=== PATIENT | male | born 1955 | race Caucasian/White ===

== ENCOUNTER 2018-04-20 11:17 | Outpatient (CLI) | payer MEDICARE, MEDICAID, SELFPAY ==
--- NOTE | 2018-04-20 15:15 | DI.RAD_ITS ---
SYMPTOMS/DIAGNOSIS: ASSESS FOR FOREIGN BODY, DRILL THROUGH DISTAL TIP OF INDEX FINGER LEFT INDEX FINGER: No radiopaque foreign body or fracture is seen. There is no abnormal soft tissue gas collection. IMPRESSION: Negative left index finger.
== END 2018-04-20 11:37 ==
PROVIDERS: PCP Family Medicine; Visit Provider Nurse Practitioner Family
DX: S61.231A Puncture wound without foreign body of left index finger without damage to nail, initial encounter (principal)
CPT/HCPCS: 73140

== ENCOUNTER 2018-10-17 01:47 | Outpatient (CLI) | payer MEDICARE, MEDICAID, SELFPAY ==
--- NOTE | 2018-10-17 09:02 | DI.RAD_ITS ---
SYMPTOM/DIAGNOSIS: LT KNEE PAIN, M25.562, FELL TWO WEEKS AGO LEFT KNEE: Four views. No priors. There is periarticular spurring involving all three joint compartments. Chondrocalcinosis is seen in the femoral tibial joint space. The bones are intact and normally mineralized. Dystrophic calcifications are seen in the posterior knee and superior to the patella. IMPRESSION: Mild arthritic changes about the left knee.
[2018-10-17 10:56] LABS: ALT 35 U/L (12-78); AST 15 U/L (15-37); Albumin 3.8 g/dL (3.4-5.0); Alkaline Phosphatase 60 U/L (46-116); Anion Gap 8.4 mmol/L (3-11); BUN 14 mg/dL (7-18); Bilirubin, Total 0.4 mg/dL (0.2-1.0); CO2 27.6 mmol/L (21.0-32.0); CREATININE 1.01 mg/dL (0.70-1.30); Calcium 9.9 mg/dL (8.5-10.1); Chloride 106 mmol/L (98-107); Cholesterol 194 mg/dL (50-200); Glucose 99 mg/dL (70-100); HDL Cholesterol 39 mg/dL (40-60); LDL CHOLESTEROL 144 mg/dL (<100); Potassium 4.3 mmol/L (3.5-5.1); Sodium 142 mmol/L (136-145); Triglyceride 129 mg/dL (30-150)
== END 2018-10-17 02:07 ==
PROVIDERS: PCP Family Medicine; Visit Provider Family Medicine
DX: M25.562 Pain in left knee (principal); M11.262 Other chondrocalcinosis, left knee; M17.12 Unilateral primary osteoarthritis, left knee; I10 Essential (primary) hypertension
CPT/HCPCS: 36415; 73562; 80053; 80061; 83721

== ENCOUNTER 2019-01-08 11:03 | Outpatient (CLI) | payer MEDICARE, MEDICAID, SELFPAY ==
[2019-01-08 12:48] LABS: ALT 38 U/L (12-78); AST 23 U/L (15-37); Alkaline Phosphatase 57 U/L (46-116); Bilirubin, Direct 0.17 mg/dL (0.00-0.20); Bilirubin, Total 0.7 mg/dL (0.2-1.0); Total Protein 7.1 g/dL (6.4-8.2)
== END 2019-01-08 11:23 ==
PROVIDERS: PCP Family Medicine; Visit Provider Family Medicine
DX: B35.1 Tinea unguium (principal)
CPT/HCPCS: 36415; 80076

== ENCOUNTER 2019-02-20 01:36 | Outpatient (CLI) | payer MEDICARE, MEDICAID, SELFPAY ==
[2019-02-20 10:37] LABS: ALT 34 U/L (12-78); AST 14 U/L (15-37); Alkaline Phosphatase 65 U/L (46-116); Bilirubin, Direct 0.09 mg/dL (0.00-0.20); Bilirubin, Total 0.5 mg/dL (0.2-1.0)
== END 2019-02-20 01:56 ==
PROVIDERS: PCP Family Medicine; Visit Provider Family Medicine
DX: B35.1 Tinea unguium (principal)
CPT/HCPCS: 36415; 80076

== ENCOUNTER 2019-10-18 09:53 | Outpatient (CLI) | payer MEDICARE, MEDICAID, SELFPAY ==
[2019-10-18 12:55] LABS: Anion Gap 8.6 mmol/L (3-11); BUN 15 mg/dL (7-18); CO2 28.4 mmol/L (21.0-32.0); CREATININE 1.01 mg/dL (0.70-1.30); Calcium 9.8 mg/dL (8.5-10.1); Calculated LDL 164 mg/dL (<100); Chloride 104 mmol/L (98-107); Cholesterol 222 mg/dL (<200); Glucose 87 mg/dL (74-106); HDL Cholesterol 38 mg/dL (40-60); Potassium 4.9 mmol/L (3.5-5.1); Sodium 141 mmol/L (136-145); Triglyceride 103 mg/dL (<150)
== END 2019-10-18 10:13 ==
PROVIDERS: PCP Family Medicine; Visit Provider Family Medicine
DX: I10 Essential (primary) hypertension (principal); N52.39 Other and unspecified postprocedural erectile dysfunction
CPT/HCPCS: 36415; 80048; 80061

== ENCOUNTER 2021-12-13 02:44 | Outpatient (CLI) | payer MEDICARE, MEDICAID, SELFPAY ==
[2021-12-13 12:48] LABS: Anion Gap 8.1 mmol/L (3-11); BUN 17 mg/dL (7-18); CO2 27.9 mmol/L (21.0-32.0); Calculated LDL 169 mg/dL (<100); Chloride 105 mmol/L (98-107); Cholesterol 225 mg/dL (<200); Glucose 95 mg/dL (74-106); HDL Cholesterol 44 mg/dL (40-60); Potassium 4.2 mmol/L (3.5-5.1); Sodium 141 mmol/L (136-145); Triglyceride 60 mg/dL (<150)
== END 2021-12-13 02:45 | disposition home or self-care (01) ==
LOC: LOS 02:44
PROVIDERS: PCP Family Medicine; Visit Provider Family Medicine
DX: I10 Essential (primary) hypertension (principal)
CPT/HCPCS: 36415; 80048; 80061

== ENCOUNTER 2023-01-17 03:18 | Outpatient (CLI) | payer MEDICARE, MEDICAID, SELFPAY ==
[2023-01-17 13:08] LABS: ALT 35 U/L (16-63); AST 22 U/L (15-37); Albumin 3.7 g/dL (3.4-5.0); Alkaline Phosphatase 57 U/L (46-116); BUN 20 mg/dL (7-18); Bilirubin, Total 0.4 mg/dL (0.2-1.0); CREATININE 1.1 mg/dL (0.70-1.30); Calcium 9.1 mg/dL (8.5-10.1); Calculated LDL 138 mg/dL (<100); Chloride 105 mmol/L (98-107); Cholesterol 201 mg/dL (<200); Estimated GFR 72.67 (mL/min/1.73m2); Glucose 79 mg/dL (74-106); HDL Cholesterol 45 mg/dL (40-60); Potassium 4.1 mmol/L (3.5-5.1); Sodium 142 mmol/L (136-145); Total Protein 7.4 g/dL (6.4-8.2); Triglyceride 90 mg/dL (<150)
== END 2023-01-17 03:19 | disposition home or self-care (01) ==
LOC: LOS 03:19
PROVIDERS: PCP Family Medicine; Visit Provider Family Medicine
DX: I10 Essential (primary) hypertension (principal); E78.00 Pure hypercholesterolemia, unspecified
CPT/HCPCS: 36415; 80053; 80061

== ENCOUNTER 2024-01-10 10:44 | Outpatient (CLI) | payer MEDICARE, MEDICAID, SELFPAY ==
[2024-01-10 12:51] LABS: ALT 30 U/L (16-63); AST 15 U/L (15-37); Albumin 3.9 g/dL (3.4-5.0); Alkaline Phosphatase 54 U/L (46-116); Anion Gap 2.1 mmol/L (3-11); BUN 12 mg/dL (7-18); Bilirubin, Total 0.4 mg/dL (0.2-1.0); CO2 26.9 mmol/L (21.0-32.0); CREATININE 1.1 mg/dL (0.70-1.30); Calcium 9.1 mg/dL (8.5-10.1); Chloride 108 mmol/L (98-107); Estimated GFR 72.22 (mL/min/1.73m2); Glucose 101 mg/dL (74-106); Sodium 137 mmol/L (136-145); Total Protein 7.4 g/dL (6.4-8.2)
== END 2024-01-10 10:45 | disposition home or self-care (01) ==
LOC: LOS 10:45
PROVIDERS: PCP Family Medicine; Referring Provider Family Medicine; Visit Provider Family Medicine
DX: I10 Essential (primary) hypertension (principal)
CPT/HCPCS: 36415; 80053

== ENCOUNTER 2025-04-09 10:49 | Outpatient (CLI) | payer MEDICARE, SELFPAY ==
[2025-04-09 12:28] LABS: HCT 47.1 % (40.0-50.0); HGB 15.6 g/dL (13.5-17.5); MCH 31.7 pg (27.0-33.0); MCHC 33.1 % (32.0-36.0); MCV 96 fL (80-95); MPV 9.3 fL (8.0-11.0); Platelet Count 338 10^3/uL (130-400); RBC 4.92 10^6/uL (4.36-5.78); RDW 13.0 % (11.8-14.1); RDW-SD 46.2 fL; WBC 5.05 10^3/uL (4.4-10.8)
[2025-04-09 12:41] LABS: Hemoglobin A1C 5.4 % (<5.7)
[2025-04-09 12:48] LABS: ALT 31 U/L (16-63); AST 18 U/L (15-37); Albumin 3.8 g/dL (3.4-5.0); Alkaline Phosphatase 57 U/L (46-116); Anion Gap 7.0 mmol/L (3-11); BUN 13 mg/dL (7-18); Bilirubin, Total 0.6 mg/dL (0.2-1.0); CO2 29.0 mmol/L (21.0-32.0); Calcium 9.4 mg/dL (8.5-10.1); Calculated LDL 155 mg/dL (<100); Chloride 104 mmol/L (98-107); Cholesterol 217 mg/dL (<200); Estimated GFR 71.77 (mL/min/1.73m2); Glucose 115 mg/dL (74-106); HDL Cholesterol 42 mg/dL (>or=40); Potassium 3.9 mmol/L (3.5-5.1); Sodium 140 mmol/L (136-145); TSH (W/Ref FT4) 3.94 uIU/mL (0.36-3.74); Total Protein 7.4 g/dL (6.4-8.2); Triglyceride 104 mg/dL (<150)
[2025-04-09 18:33] LABS: PSA, Screening 5.0 ng/mL (<=6.5)
[2025-04-09 19:51] LABS: HIV-1/2 Ag & Ab Screen Negative (Negative)
[2025-04-09 19:52] LABS: Hepatitis C Ab w Rflx HCV PCR Negative (Negative)
[2025-04-09 19:54] LABS: HBs Antibody, Quant <3.1 mIU/mL (See Note); Hepatitis B Surface Antigen Negative (Negative)
== END 2025-04-09 10:50 | disposition home or self-care (01) ==
PROVIDERS: PCP Nurse Practitioner Family; Referring Provider Nurse Practitioner Family; Visit Provider Nurse Practitioner Family
DX: E78.01 Familial hypercholesterolemia (principal); Z11.4 Encounter for screening for human immunodeficiency virus [HIV]; Z11.59 Encounter for screening for other viral diseases
CPT/HCPCS: 36415; 80053; 80061; 84153; 85027; 86704; 86706; 86803; 87340; 87389; 83036; 84439; 84443